=== PATIENT | male | born 1945 | race African-American/Black ===

== ENCOUNTER 2020-01-03 07:54 | Outpatient (CLI) | payer MEDICARE, SELFPAY ==
--- NOTE | ~2020-01-03 | CT_ITS ---
EXAMINATION: CT abdomen pelvis w con DATE: 01/03/2020 08:45 INDICATION: Prostate cancer TECHNIQUE: Computed tomography (CT) of the abdomen and pelvis was performed with 100 cc Omnipaque 350 intravenous contrast. Automated exposure control and iterative reconstruction technique were employe d. Exam dose: 746.73 mGy-cm total exam DLP. COMPARISON: 08/06/2015 CT abdomen pelvis FINDINGS: Normal heart size. No pericardial or pleural effusion. Nonspecific groundglass 5 mm opacity of the middle lobe (series 4 image 4). Minimal primarily lower l obe dependent atelectasis. There is mild sludge accumulation in the dependent aspect of the gallbladder. No pericholecystic flui d or stranding. Calcified gallstones were evident on the 08/06/2015 CT abdomen pelvis examination, but not on the current examination. However, small gallstones are not excluded. Consider gallbladder ult rasound for more definitive evaluation for possible cholelithiasis. Calcified hepatic and splenic granulomas consistent with old granulomatous disease. The liver, spleen , pancreas are otherwise unremarkable. No bile duct or pancreatic duct dilatation. Stable mild nodularity of the right adrenal gland, unchanged since 08/06/2015. No renal space occupying mass lesion or urinary tract calculus or hydroureteronephrosis is evident. There is prominent prostate enlargement. There is a small diverticulum of the anterior aspect of the urinary bladder. There is right hip arthroplasty streak artifact obscuring to some extent the pelvic soft tissues. There is atherosclerotic calcification of the abdominal aorta and branches but no abdominal aortic an eurysm. No intraperitoneal or retroperitoneal or pelvic mass lesion or adenopathy or ascites. Diverticulosis of the colon, involving primarily the sigmoid area. No CT evidence of diverticulitis. Normal appendix. No bowel obstruction. No intraperitoneal free air. Small fat-containing umbilical he rnia. There is extensive osseous lytic metastatic disease throughout the axial skeleton including sternum, ribs, thoracic and lumbar spine, pelvis, sacrum, both hips and proximal femurs. IMPRESSION: Extensive diffuse osteoblastic prostate metastatic disease Prostate enlargement Small bladder diverticulum Diverticulosis of the colon Sludge in the gallbladder; cannot exclude cholelithiasis Reviewed, dictated and finalized at [facility]. Reviewed, dictated and finalized at [facility]. [employer]
--- NOTE | ~2020-01-03 | NM_ITS ---
EXAMINATION: NM bone scan whole body DATE: 01/03/2020 12:47 INDICATION: Prostate cancer TECHNIQUE: 22.2 mCi Tc-99m HDP was administered intravenously. Delayed whole-body scintigrams were o btained. COMPARISON: CT abdomen and pelvis dated 01/03/2020 FINDINGS: Innumerable sclerotic lesions scattered throughout the axial and appendicular skeleton consistent wit h widespread osseous metastatic disease. Increased uptake at the medial compartments of both knees li jasbir related to osteoarthritis. Photopenic defect at the right hip corresponding to a total hip arthr oplasty. IMPRESSION: 1. Widespread osseous metastatic disease. Reviewed, dictated and finalized at [facility]. [employer]
[2020-01-03 08:38] LABS: Estimated Glomerular Filt Rate > 60
== END 2020-01-03 07:55 | disposition home or self-care (01) ==
PROVIDERS: Visit Provider Urology
DX: C61 Malignant neoplasm of prostate (principal); C79.51 Secondary malignant neoplasm of bone; K57.30 Diverticulosis of large intestine without perforation or abscess without bleeding; K57.10 Diverticulosis of small intestine without perforation or abscess without bleeding; N40.0 Benign prostatic hyperplasia without lower urinary tract symptoms
CPT/HCPCS: 36415; 74177; 78306; A9561; Q9967

== ENCOUNTER 2020-03-11 11:47 | Outpatient (CLI) | payer MEDICARE, SELFPAY ==
[2020-03-11 12:57] LABS: Prostate Specific Antigen 34.6 ng/mL (< OR = 4.0)
== END 2020-03-11 11:48 | disposition home or self-care (01) ==
PROVIDERS: Visit Provider Urology
DX: C61 Malignant neoplasm of prostate (principal)
CPT/HCPCS: 36415; 84153

== ENCOUNTER 2020-07-22 11:09 | Outpatient (CLI) | payer MEDICARE, SELFPAY ==
[2020-07-22 12:30] LABS: Prostate Specific Antigen 12.4 ng/mL (< OR = 4.0)
== END 2020-07-22 11:10 | disposition home or self-care (01) ==
LOC: ANHLAB 11:14
PROVIDERS: PCP Urology; Visit Provider Urology
DX: C61 Malignant neoplasm of prostate (principal)
CPT/HCPCS: 36415; 84153